=== PATIENT | female | born 1960 | race Caucasian/White ===

== ENCOUNTER 2021-01-19 21:14 | Emergency (ER) | payer OTHER ==
[~2021-01-19 21:14] MED LIST: ONDANSETRON ODT4 MG SL
== END 2021-01-19 21:50 | disposition home or self-care (01) ==
LOC: FER 21:14
DX: T82.594A Other mechanical complication of infusion catheter, initial encounter (principal); Y82.8 Other medical devices associated with adverse incidents; Z88.2 Allergy status to sulfonamides
CPT/HCPCS: 99283; J1642